=== PATIENT | female | born 1995 | race Caucasian/White ===

== ENCOUNTER 2017-02-10 11:28 | Emergency (ER) | payer OTHER ==
[2017-02-10] MEDS ORDERED: traMADol HCl 50 MG TAB ONE (11:49)
[2017-02-10] MEDS ORDERED: Ondansetron ODT 4 MG TAB ONE (11:49)
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
== END 2017-02-10 12:08 | disposition home or self-care (01) ==
LOC: NAV ERS 11:28
DX: S13.9XXA Sprain of joints and ligaments of unspecified parts of neck, initial encounter (principal); S20.212A Contusion of left front wall of thorax, initial encounter; J45.909 Unspecified asthma, uncomplicated; K21.9 Gastro-esophageal reflux disease without esophagitis; V89.2XXA Person injured in unspecified motor-vehicle accident, traffic, initial encounter
CPT/HCPCS: 71010; 72040; Q0162